=== PATIENT | female | born 1950 | race Caucasian/White ===

== ENCOUNTER 2024-06-01 16:13 | Inpatient (IN) | payer OTHER ==
[2024-06-01] MEDS ORDERED: NA CHLORIDE 0.9% 1,000 ML ONE (16:24)
[2024-06-01 16:33] LABS: Absolute Basophils 0.1 K/uL (0-0.5); Absolute Eosinophils 0.3 K/uL (0-0.5); Absolute Lymphocytes (CBC) 2.5 K/uL (0.7-4.9); Absolute Neutrophil 11.2 K/uL (1.8-8.0); Basophils % 0.4 % (0-1.3); Eosinophils % 1.8 % (0-4.4); Hematocrit 32.7 % (36.0-45.0); Hemoglobin 10.8 g/dL (12.0-15.0); Lymphocytes % 16.9 % (15.3-44.8); MCH 26.2 pg (27.0-35.0); MCHC 32.9 g/dL (32.0-36.0); MCV 79.6 fL (80-100); MPV 7.1 fL (7.6-11.3); Monocytes % 6.9 % (3.3-12.3); Platelets 427 thou/uL (152-406); RBC Red Blood Cell Count 4.12 M/uL (3.86-4.86)
[2024-06-01 16:46] LABS: PT Prothrombin Time 16.7 SECONDS (9.4-12.5); Protime INR 1.51
[2024-06-01 16:53] LABS: Albumin 2.8 g/dL (3.4-5.0); Albumin/Globulin Ratio 0.6 (1.1-1.8); Alkaline Phosphatase 72 U/L (45-117); Anion Gap 10.2 mEq/L (5.0-15.0); BUN Blood Urea Nitrogen 17 mg/dL (7-18); Bicarbonate 22 mEq/L (21-32); Bilirubin Total 0.2 mg/dL (0.2-1.0); Globulin 4.5 g/dL (2.3-3.5); Glomerular Filtration Rate 76 ml/min (=/>90); Glucose Level 172 mg/dL (74-106); Lipase 23 U/L (13-75); Magnesium 1.6 mg/dL (1.6-2.4); NT PRO-BNP 607 pg/mL (<450); Potassium 3.2 mEq/L (3.5-5.1); Protein, Total 7.3 g/dL (6.4-8.2); Sodium Level 136 mEq/L (136-145); Troponin High Sensitivity 4.1 pg/mL (<58.9)
[2024-06-01 16:56] LABS: ALT/SGPT < 14 U/L (13-56); AST/SGOT < 10 U/L (15-37); Bilirubin Direct < 0.2 mg/dL (0-0.2)
[2024-06-01] MEDS ORDERED: IPRATROPIUM BROM 0.5MG/2.5ML ONE (17:22)
[2024-06-01] MEDS ORDERED: METHYLPREDNISOLONE 125 MG INJ ONE (17:22)
[2024-06-01] MEDS ORDERED: DIGOXIN 0.25 MG/ML AMP ONE (17:22)
[2024-06-01] MEDS ORDERED: LEVALBUTEROL 1.25 MG/3 ML NEB ONE (17:22)
[2024-06-01] MEDS ORDERED: METOPROLOL TARTRATE 5 MG/5 ML INJ IV ONE (17:23)
[2024-06-01] MEDS ORDERED: MAGNESIUM SULFATE 1 gm IVPB 1 GM/100 ML BAG IV ONE (17:23)
--- NOTE | 2024-06-01 17:42 | ER ---
Nurse's Notes [facility] Name: Pavithra Case Age: 74 yrs Sex: Female : 1950 Arrival Date: 06/01/2024 Time: 16:13 Bed 2 Private MD: Diagnosis: Paroxysmal atrial fibrillation-WITH RVR;Chest pain, unspecified;Hypokalemia Presentation: 06/01 16:18 Initial Sepsis Screen: Does the patient meet any 2 criteria? HR > 90 bpm. Does the cm10 patient have a suspected source of infection? No. Patient's initial sepsis screen is negative. Risk Assessment: Do you want to hurt yourself or someone else? Patient reports no desire to harm self or others. Onset of symptoms was May 30, 2024. Care prior to arrival: Medication(s) given: Nitroglycerin, 0.4 mg SL x 1, Morphine 4mg IV initiated. 20 GA, in the right antecubital area. 16:18 Acuity: ZOEY 2 cm10 16:19 Chief complaint: EMS states: Called to patient's home due to patient having chest pain cm10 onset Saturday. Pt states that her pain is to the right side of her chest and radiates to her back. Pt describes the pain as dull. Pt received Nitro X1 and Morphine 4mg in route and states that it helped her pain some. Coronavirus screen: Client denies travel out of the [place] in the last 14 days. Ebola Screen: No symptoms or risks identified at this time. 16:19 Method Of Arrival: EMS: [facility] cm10 Historical: - Allergies: 16:22 Aspirin; mb9 - Home Meds: 16:26 buspirone 15 mg Oral tablet 1 tab [Active]; diltiazem HCl 240 mg Oral Capsule, ER 24 hr cm10 1 cap daily [Active]; oxybutynin chloride 10 mg Oral Tablet, Extended Release 24 hr 1 tab daily [Active]; venlafaxine 150 mg oral Capsule, ER 24 hr 1 cap daily [Active]; dexlansoprazole 60 mg oral capsule,delayed release,biphasic 1 cap daily [Active]; ergocalciferol (vitamin D2) 1,250 mcg (50,000 unit) oral capsule [Active]; levothyroxine 25 mcg tablet 1 tab daily [Active]; Trelegy Ellipta 100-62.5-25 mcg inhalation Blister, With Inhalation Device 1 inhalation daily [Active]; donepezil 10 mg oral Tablet,disintegrating 1 tab every day at bedtime [Active]; ropinirole 2 mg oral tablet 1 tab every day at bedtime [Active]; lisinopril 2.5 mg Oral tablet 1 tab daily [Active]; sertraline 100 mg oral tablet 1 tab daily [Active]; risedronate 150 mg oral tablet 1 tab [Active]; metformin 1,000 mg Oral tablet [Active]; repaglinide 1 mg oral tablet 1 tab 3 times per day [Active]; rosuvastatin 10 mg oral tablet 1 tab daily [Active]; Eliquis 5 mg oral tablet 1 tab 2 times per day [Active]; - PMHx: 16:22 Atrial fibrillation; mb9 16:26 Hypertensive disorder; Hypercholesterolemia; Anxiety; Depressive disorder; cm10 Hypothyroidism; Restless leg syndrome; Osteoporosis; Diabetes mellitus; COPD; Vitamin D Deficiency; Anemia; - Immunization history:: Adult Immunizations up to date. - Infectious Disease History:: Denies. - Social history:: Smoking status: Patient denies any tobacco usage or history of. Screenin:21 [facility] ED Fall Risk Assessment (Adult) History of falling in the last 3 months, mb9 including since admission No falls in past 3 months (0 pts) Confusion or Disorientation No (0 pts) Intoxicated or Sedated No (0 pts) Impaired Gait No (0 pts) Mobility Assist Device Used No (0 pt) Altered Elimination No (0 pt) Score/Fall Risk Level 0 - 2 = Low Risk Oriented to surroundings, Maintained a safe environment, Educated pt \T\ family on fall prevention, incl call for assistance when getting out of bed. Abuse screen: Denies threats or abuse. Nutritional screening: No deficits noted. Tuberculosis screening: Assessment: 16:31 General: Appears in no apparent distress. Behavior is calm, cooperative. Pain: mb9 Complains of pain in chest Pain radiates to right arm Pain currently is 1 out of 10 on a pain scale. Quality of pain is described as aching, dull, Pain began suddenly. Neuro: Peter Agitation-Sedation Scale (RASS): 0 - Alert and Calm Level of Consciousness is awake, alert, obeys commands, Oriented to person, place, time, situation, Appropriate for age. Cardiovascular: Heart tones S1 S2 present Patient's skin is warm and dry. Respiratory: Airway is patent Respiratory effort is even, unlabored, Respiratory pattern is regular, symmetrical, Breath sounds are clear bilaterally. GI: Abdomen is round non-distended. : No signs and/or symptoms were reported regarding the genitourinary system. EENT: No signs and/or symptoms were reported regarding the EENT system. Derm: Skin is pink, warm \T\ dry. Musculoskeletal: Range of motion: intact in all extremities. 17:52 Reassessment: Patient states feeling better. Patient states symptoms have improved. cm10 18:02 Reassessment: Patient and/or family updated on plan of care and expected duration. Pain mb9 level reassessed. Patient is alert, oriented x 3, equal unlabored respirations, skin warm/dry/pink. 19:00 Reassessment: Patient appears in no apparent distress at this time. No changes from cm10 previously documented assessment. Patient and/or family updated on plan of care and expected duration. Pain level reassessed. Patient is alert, oriented x 3, equal unlabored respirations, skin warm/dry/pink. 20:59 Reassessment: Patient appears in no apparent distress at this time. No changes from cm10 previously documented assessment. Patient and/or family updated on plan of care and expected duration. Pain level reassessed. Patient is alert, oriented x 3, equal unlabored respirations, skin warm/dry/pink. Vital Signs: 16:18 BP 142 / 65; Pulse 92; Resp 15; Temp 98.6(O); Pulse Ox 100% on R/A; Weight 70.31 kg cm10 (M); Height 5 ft. 4 in. ; Pain 5/10; 17:00 Pulse 160; cm10 17:22 BP 142 / 79; Pulse 125; Resp 18; Pulse Ox 100% on R/A; cm10 17:30 BP 144 / 73; Pulse 108; Resp 16; Pulse Ox 100% on R/A; cm10 17:55 Pulse 72; cm10 18:00 BP 158 / 63; Pulse 77; Resp 14; Pulse Ox 99% on R/A; cm10 18:30 BP 149 / 65; Pulse 84; Resp 16; Pulse Ox 99% on R/A; cm10 19:00 BP 145 / 60; Pulse 84; Resp 15; Pulse Ox 100% on R/A; cm10 19:30 BP 152 / 71; Pulse 87; Resp 16; Pulse Ox 99% on R/A; cm10 20:00 BP 148 / 72; Pulse 87; Resp 18; Pulse Ox 99% on R/A; cm10 20:30 BP 142 / 58; Pulse 79; Resp 14; Pulse Ox 98% on R/A; cm10 16:18 Body Mass Index 26.61 (70.31 kg, 162.56 cm) cm10 16:18 Pain Scale: Adult 10 Vitals: 16:30 Cardiac Rhythm Assessment Atrial fibrillation. cm10 17:52 Cardiac Rhythm Assessment Regular Sinus rhythm. 10 ED Course: 16:17 Patient arrived in ED. 10 16:19 Triage completed. 10 16:20 Duarte Mccullough MD is Attending Physician. [facility] 16:20 Tamika Martin RN is Primary Nurse. mb9 16:20 Initial lab(s) drawn, by nm, sent to lab. EKG done, by ED staff, reviewed by Duarte Mccullough MD. Maintain EMS IV. Dressing intact. Good blood return noted. Site clean \T\ dry. Gauge \T\ site: 20g right AC. Flushed with 10 mL NS. 16:21 Placed in gown. Bed in low position. Call light in reach. Side rails up X 1. Provided ana Education on: press call light if needing anything. Client placed on continuous cardiac and pulse oximetry monitoring. NIBP monitoring applied. satellite project site monitor on. 16:22 Basic Metabolic Panel Sent. mb9 16:22 CBC with Diff Sent. mb9 16:22 LFT's Sent. mb9 16:22 Magnesium Sent. mb9 16:22 NT PRO-BNP Sent. mb9 16:22 PT-INR Sent. mb9 16:22 Troponin HS Sent. mb9 16:22 Arm band placed on. mb9 17:04 XRAY Chest (1 view) In Process Unspecified. EDMS 17:20 Inserted saline lock: 18 gauge in left forearm, using aseptic technique. Flushed with cm10 10 mL NS. 17:40 Alfonso Li MD is Hospitalizing Provider. [facility] 17:52 EKG done, by ED staff, reviewed by Duarte Mccullough MD. 10 18:06 No provider procedures requiring assistance completed. Patient admitted, IV remains in mb9 place. Administered Medications: 16:22 Not Given (Hemodynamic Parameters; pt allergicc): aspirinchewable tablet 81 mg PO once mb9 16:31 Drug: NS 0.9% IV 1000 ml IV at 125 ml/hr continuous Route: IV; Rate: 125 ml/hr; Site: mb9 right antecubital; 17:52 Follow up: IV Status: Infusion continued upon admission 9 17:20 Drug: MethylPrednisoLONE IVP 125 mg IVP once Route: IVP; Site: left forearm; cm10 17:52 Follow up: Response: No adverse reaction 9 17:20 Drug: Magnesium Sulfate IVPB 1 grams IVPB once over 1 hrs Route: IVPB; Infused Over: 1 cm10 hrs; Site: right antecubital; 18:26 Follow up: Response: No adverse reaction; IV Status: Completed infusion; IV Intake: cm10 100ml 17:25 Drug: Metoprolol IVP 5 mg IVP once; Hold for SBP <100 or HR <60. Route: IVP; Site: left cm10 forearm; 17:51 Follow up: Response: No adverse reaction; Cardiac rhythm changed cm10 17:30 Drug: Digoxin IVP 0.5 mg IVP once Route: IVP; Site: left forearm; cm10 17:51 Follow up: Response: No adverse reaction; Cardiac rhythm changed cm10 17:51 Drug: Metoprolol PO 50 mg PO once Route: PO; mb9 18:26 Follow up: Response: No adverse reaction cm10 17:51 Drug: Famotidine IVP 20 mg IVP once; dilute with 10 mL 0.9% NaCl; give over 2 minutes 9 Route: IVP; Site: right antecubital; 18:26 Follow up: Response: No adverse reaction cm10 17:51 Drug: Potassium PO Effervescent Tablet 25 mEq PO once; dissolve in 4 ounces of water or [facility] juice Route: PO; 18:26 Follow up: Response: No adverse reaction cm10 17:53 CANCELLED (Physician Discretion): ipratropiumaerosol 0.5 mg Inhalation once cm10 17:54 CANCELLED (Physician Discretion): levalbuterol3.75 mg Inhalation once 10 19:03 Not Given (Hemodynamic Parameters): metoprolol5 mg IVP once; Hold for SBP <100 or HR al5 <60. Medication: 16:22 VIS not applicable for this client. mb9 Intake: 18:26 IV: 100ml; Total: 100ml. cm10 Outcome: 17:42 Decision to Hospitalize by Provider. mesha 21:29 Admitted to Tele accompanied by nurse, via wheelchair, room 414, cm10 21:29 Condition: stable 21:29 Instructed on the need for admit, 21:32 Patient left the ED. cm10 Signatures: Dispatcher [employer] EDDuarte Corral MD MD cha Wilkerson, Tamika David RN RN mb9 Kelly Porras RN RN cm10 Jeri Zhu RN al5 Corrections: (The following items were deleted from the chart) 17:53 17:43 Ipratropium Inhalation Aerosol 0.5 mg Inhalation cm10 cm10 17:53 17:43 Levalbuterol Inhalation 3.75 mg Inhalation cm10 cm10
--- NOTE | 2024-06-01 17:42 | EDPHYS ---
Physician Documentation [facility] Name: Pavithra Case Age: 74 yrs Sex: Female : 1950 Arrival Date: 06/01/2024 Time: 16:13 Bed 2 Private MD: ROXI Physician Duarte Mccullough HPI: 06/01 17:33 This 74 yrs old Female presents to ER via EMS with complaints of Chest Pain. [facility] 17:33 The patient or guardian reports chest pain that is located primarily in the anterior mesha chest wall, bilaterally. Onset: just prior to arrival. The pain does not radiate. Associated signs and symptoms: The patient has no apparent associated signs or symptoms. The chest pain is described as aching. Modifying factors: The symptoms are alleviated by nothing. the symptoms are aggravated by nothing. The patient has not experienced similar symptoms in the past. Historical: - Allergies: 16:22 Aspirin; mb9 - Home Meds: 16:26 buspirone 15 mg Oral tablet 1 tab [Active]; diltiazem HCl 240 mg Oral Capsule, ER 24 hr cm10 1 cap daily [Active]; oxybutynin chloride 10 mg Oral Tablet, Extended Release 24 hr 1 tab daily [Active]; venlafaxine 150 mg oral Capsule, ER 24 hr 1 cap daily [Active]; dexlansoprazole 60 mg oral capsule,delayed release,biphasic 1 cap daily [Active]; ergocalciferol (vitamin D2) 1,250 mcg (50,000 unit) oral capsule [Active]; levothyroxine 25 mcg tablet 1 tab daily [Active]; Trelegy Ellipta 100-62.5-25 mcg inhalation Blister, With Inhalation Device 1 inhalation daily [Active]; donepezil 10 mg oral Tablet,disintegrating 1 tab every day at bedtime [Active]; ropinirole 2 mg oral tablet 1 tab every day at bedtime [Active]; lisinopril 2.5 mg Oral tablet 1 tab daily [Active]; sertraline 100 mg oral tablet 1 tab daily [Active]; risedronate 150 mg oral tablet 1 tab [Active]; metformin 1,000 mg Oral tablet [Active]; repaglinide 1 mg oral tablet 1 tab 3 times per day [Active]; rosuvastatin 10 mg oral tablet 1 tab daily [Active]; Eliquis 5 mg oral tablet 1 tab 2 times per day [Active]; - PMHx: 16:22 Atrial fibrillation; mb9 16:26 Hypertensive disorder; Hypercholesterolemia; Anxiety; Depressive disorder; cm10 Hypothyroidism; Restless leg syndrome; Osteoporosis; Diabetes mellitus; COPD; Vitamin D Deficiency; Anemia; - Immunization history:: Adult Immunizations up to date. - Infectious Disease History:: Denies. - Social history:: Smoking status: Patient denies any tobacco usage or history of. ROS: 17:36 Constitutional: Negative for fever, chills, and weight loss, Eyes: Negative for injury, mesha pain, redness, and discharge, ENT: Negative for injury, pain, and discharge, Neck: Negative for injury, pain, and swelling, Respiratory: Negative for shortness of breath, cough, wheezing, and pleuritic chest pain, Abdomen/GI: Negative for abdominal pain, nausea, vomiting, diarrhea, and constipation, Back: Negative for injury and pain, : Negative for injury, bleeding, discharge, and swelling, MS/Extremity: Negative for injury and deformity, Skin: Negative for injury, rash, and discoloration, Neuro: Negative for headache, weakness, numbness, tingling, and seizure, Psych: Negative for depression, anxiety, suicide ideation, homicidal ideation, and hallucinations, Allergy/Immunology: Negative for hives, rash, and allergies, Endocrine: Negative for neck swelling, polydipsia, polyuria, polyphagia, and marked weight changes, Hematologic/Lymphatic: Negative for swollen nodes, abnormal bleeding, and unusual bruising, 17:36 Cardiovascular: Positive for chest pain, palpitations, Exam: 17:36 Constitutional: This is a well developed, well nourished patient who is awake, alert, mesha and in no acute distress. Head/Face: Normocephalic, atraumatic. Eyes: Pupils equal round and reactive to light, extra-ocular motions intact. Lids and lashes normal. Conjunctiva and sclera are non-icteric and not injected. Cornea within normal limits. Periorbital areas with no swelling, redness, or edema. ENT: Nares patent. No nasal discharge, no septal abnormalities noted. Tympanic membranes are normal and external auditory canals are clear. Oropharynx with no redness, swelling, or masses, exudates, or evidence of obstruction, uvula midline. Mucous membranes moist. Neck: Trachea midline, no thyromegaly or masses palpated, and no cervical lymphadenopathy. Supple, full range of motion without nuchal rigidity, or vertebral point tenderness. No Meningismus. Chest/axilla: Normal chest wall appearance and motion. Nontender with no deformity. No lesions are appreciated. Respiratory: Lungs have equal breath sounds bilaterally, clear to auscultation and percussion. No rales, rhonchi or wheezes noted. No increased work of breathing, no retractions or nasal flaring. Abdomen/GI: Soft, non-tender, with normal bowel sounds. No distension or tympany. No guarding or rebound. No evidence of tenderness throughout. Back: No spinal tenderness. No costovertebral tenderness. Full range of motion. Female : Normal external genitalia. Skin: Warm, dry with normal turgor. Normal color with no rashes, no lesions, and no evidence of cellulitis. MS/ Extremity: Pulses equal, no cyanosis. Neurovascular intact. Full, normal range of motion. Neuro: Awake and alert, GCS 15, oriented to person, place, time, and situation. Cranial nerves II-XII grossly intact. Motor strength 5/5 in all extremities. Sensory grossly intact. Cerebellar exam normal. Normal gait. Psych: Awake, alert, with orientation to person, place and time. Behavior, mood, and affect are within normal limits. 17:36 Cardiovascular: Rate: tachycardic, actual rate is 92 bpm, Rhythm: regular, Pulses: Pulses are 4+ in bilateral radial, brachial, femoral, popliteal, posterior tibial and and dorsalis pedis arteries.. Heart sounds: normal, Edema: is not appreciated, JVD: is not appreciated, 17:36 ECG was reviewed by the Attending Physician. 17:50 ECG was reviewed by the Attending Physician. mesha Vital Signs: 16:18 BP 142 / 65; Pulse 92; Resp 15; Temp 98.6(O); Pulse Ox 100% on R/A; Weight 70.31 kg cm10 (M); Height 5 ft. 4 in. ; Pain 5/10; 17:00 Pulse 160; cm10 17:22 BP 142 / 79; Pulse 125; Resp 18; Pulse Ox 100% on R/A; cm10 17:30 BP 144 / 73; Pulse 108; Resp 16; Pulse Ox 100% on R/A; cm10 17:55 Pulse 72; cm10 18:00 BP 158 / 63; Pulse 77; Resp 14; Pulse Ox 99% on R/A; cm10 18:30 BP 149 / 65; Pulse 84; Resp 16; Pulse Ox 99% on R/A; cm10 19:00 BP 145 / 60; Pulse 84; Resp 15; Pulse Ox 100% on R/A; cm10 19:30 BP 152 / 71; Pulse 87; Resp 16; Pulse Ox 99% on R/A; cm10 20:00 BP 148 / 72; Pulse 87; Resp 18; Pulse Ox 99% on R/A; cm10 20:30 BP 142 / 58; Pulse 79; Resp 14; Pulse Ox 98% on R/A; cm10 16:18 Body Mass Index 26.61 (70.31 kg, 162.56 cm) cm10 16:18 Pain Scale: Adult cm10 MDM: 16:20 Medical Screening Exam initiated mesha 17:48 Differential diagnosis: abnormal EKG, acute myocardial infarction, acute pericarditis, mesha anxiety, coronary artery disease chest wall pain, costochondritis, esophagitis, gastritis, peptic ulcer disease, pneumonia, pulmonary embolus, stable angina, thoracic aortic disection, unstable angina. HEART Score: History: Slightly Suspicious (0), ECG: Normal (0), Age: > or = 65 years (2). The patient was not given aspirin in the Emergency Department. Not indicated due to patient's past medical history. DAVY Risk Score: 1 - patient's age is greater or equal to 65 years, 1 - Three or more CAD risk factors, [Family Hx], [HTN], [Elevated Cholesterol], 1 - Recent [<24hrs] Severe Angina, TOTAL SCORE = 3. Data reviewed: vital signs, nurses notes, lab test result(s), EKG, radiologic studies, plain films. Consideration of Admission/Observation Patient was admitted/placed on observation. Escalation of care including admission/observation considered. I considered the following discharge prescriptions or medication management in the emergency department Medications were administered in the Emergency Department. See MAR. Independent interpretation of the following test(s) in the Emergency Department EKG: See my EKG interpretation above. Test considered but Not performed: Ultrasound NO 2 D ECHO. Care significantly affected by the following chronic conditions: Hypertension, Obesity, A FIB, ANXIETY , DEPRESSION. 06/01 16:21 Order name: Basic Metabolic Panel; Complete Time: 17:15 [facility] 06/01 16:21 Order name: CBC with Diff; Complete Time: 17:15 [facility] 06/01 16:21 Order name: LFT's; Complete Time: 17:15 [facility] 06/01 16:21 Order name: Magnesium; Complete Time: 17:15 [facility] 06/01 16:21 Order name: NT PRO-BNP; Complete Time: 17:15 [facility] 06/01 16:21 Order name: PT-INR; Complete Time: 17:15 [facility] 06/01 16:21 Order name: Troponin HS; Complete Time: 17:15 [facility] 06/01 16:21 Order name: Lipase; Complete Time: 17:15 [facility] 06/01 16:21 Order name: Urinalysis w/ reflexes [facility] 06/01 17:10 Order name: TSH [facility] 06/01 18:45 Order name: Procalcitonin [facility] 06/01 18:55 Order name: CBC with Automated Diff [facility] 06/01 18:55 Order name: Comprehensive Metabolic Panel [facility] 06/01 18:55 Order name: Creatine Phosphokinase [facility] 06/01 18:55 Order name: Lactate w/ 2H reflex if indic. [facility] 06/01 18:55 Order name: Magnesium [facility] 06/01 18:55 Order name: NT PRO-BNP [facility] 06/01 18:55 Order name: Phosphorus [facility] 06/01 18:55 Order name: Urinalysis w/ reflexes [facility] 06/01 18:55 Order name: Lipid Profile [facility] 06/01 18:55 Order name: Lipid Profile [facility] 06/01 18:55 Order name: Troponin High Sensitivity [facility] 06/01 18:55 Order name: Troponin High Sensitivity [facility] 06/01 18:55 Order name: Troponin High Sensitivity [facility] 06/01 18:55 Order name: Troponin High Sensitivity [facility] 06/01 18:56 Order name: Procalcitonin [facility] 06/01 19:02 Order name: T4 Free [facility] 06/01 16:21 Order name: XRAY Chest (1 view) [facility] 06/01 16:21 Order name: EKG; Complete Time: 16:22 [facility] 06/01 17:52 Order name: EKG; Complete Time: 17:52 cm10 06/01 18:57 Order name: Respiratory Therapy Consult [facility] 06/01 16:21 Order name: Cardiac monitoring; Complete Time: 16:22 [facility] 06/01 16:21 Order name: EKG - Nurse/Tech; Complete Time: 16:22 [facility] 06/01 16:21 Order name: IV Saline Lock; Complete Time: 16: [facility] 06/01 16:21 Order name: Labs collected and sent; Complete Time: 16:22 [facility] 06/01 16:21 Order name: O2 Per Protocol; Complete Time: 16: [facility] 06/01 16:21 Order name: O2 Sat Monitoring; Complete Time: 16: [facility] 06/01 17:52 Order name: EKG - Nurse/Tech; Complete Time: 17:52 cm10 EC:36 Rate is 95 beats/min. Rhythm is regular. QRS Randolph is Normal. LA interval is normal. QRS mesha interval is normal. QT interval is normal. No Q waves. T waves are Normal. No ST changes noted. Clinical impression: NSR w/ Non-specific ST/T Changes and No evidence of ischemia. Interpreted by me. Reviewed by me. 17:50 Rate is 73 beats/min. QRS [place] is Normal. LA interval is normal. QRS interval is mesha normal. QT interval is normal. No Q waves. T waves are Normal. No ST changes noted. Clinical impression: Normal ECG and No evidence of ischemia. Interpreted by me. Reviewed by me. Administered Medications: 16:22 Not Given (Hemodynamic Parameters; pt allergicc): aspirinchewable tablet 81 mg PO once mb9 16:31 Drug: NS 0.9% IV 1000 ml IV at 125 ml/hr continuous Route: IV; Rate: 125 ml/hr; Site: mb9 right antecubital; 17:52 Follow up: IV Status: Infusion continued upon admission mb9 17:20 Drug: MethylPrednisoLONE IVP 125 mg IVP once Route: IVP; Site: left forearm; cm10 17:52 Follow up: Response: No adverse reaction mb9 17:20 Drug: Magnesium Sulfate IVPB 1 grams IVPB once over 1 hrs Route: IVPB; Infused Over: 1 cm10 hrs; Site: right antecubital; 18:26 Follow up: Response: No adverse reaction; IV Status: Completed infusion; IV Intake: cm10 100ml 17:25 Drug: Metoprolol IVP 5 mg IVP once; Hold for SBP <100 or HR <60. Route: IVP; Site: left cm10 forearm; 17:51 Follow up: Response: No adverse reaction; Cardiac rhythm changed cm10 17:30 Drug: Digoxin IVP 0.5 mg IVP once Route: IVP; Site: left forearm; cm10 17:51 Follow up: Response: No adverse reaction; Cardiac rhythm changed cm10 17:51 Drug: Metoprolol PO 50 mg PO once Route: PO; mb9 18:26 Follow up: Response: No adverse reaction cm10 17:51 Drug: Famotidine IVP 20 mg IVP once; dilute with 10 mL 0.9% NaCl; give over 2 minutes mb9 Route: IVP; Site: right antecubital; 18:26 Follow up: Response: No adverse reaction cm10 17:51 Drug: Potassium PO Effervescent Tablet 25 mEq PO once; dissolve in 4 ounces of water or mb9 juice Route: PO; 18:26 Follow up: Response: No adverse reaction cm10 17:53 CANCELLED (Physician Discretion): ipratropiumaerosol 0.5 mg Inhalation once cm10 17:54 CANCELLED (Physician Discretion): levalbuterol3.75 mg Inhalation once cm10 19:03 Not Given (Hemodynamic Parameters): metoprolol5 mg IVP once; Hold for SBP <100 or HR al5 <60. Disposition Summary: 06/01/24 17:42 Hospitalization Ordered Notes: Hospitalization Status: Observation mesha Provider: Alfonso Li cha Location: Telemetry/MedSurg (observation) mesha Condition: Fair mesha Problem: new mesha Symptoms: have improved mesha Bed/Room Type: Standard mesha Room Assignment: 414(06/01/24 19:44) rv1 Diagnosis - Paroxysmal atrial fibrillation - WITH RVR mesha - Chest pain, unspecified mesha - Hypokalemia mesha Forms: - Medication Reconciliation Form mesha - SBAR form mesha - Leadership Thank You Letter mesha Signatures: Dispatcher [employer] Duarte Goetz MD MD cha Wilkerson, Tamika David RN RN mb9 Ibis Canseco rv1 Kelly Porras RN RN cm10 Jeri Zhu RN al5 Corrections: (The following items were deleted from the chart) 17:53 17:15 Ipratropium Inhalation Aerosol 0.5 mg Inhalation once ordered. [place] [id number] 17:53 17:43 Ipratropium Inhalation Aerosol 0.5 mg Inhalation once given. [facility] cm10 17:53 17:53 Ipratropium Inhalation Aerosol 0.5 mg Inhalation once ordered. [address] 17:54 17:15 Levalbuterol Inhalation 3.75 mg Inhalation once ordered. [facility] 17:54 17:44 Levalbuterol Inhalation 3.75 mg Inhalation once given. [facility] cm10 17:54 17:53 Levalbuterol Inhalation 3.75 mg Inhalation once ordered. [place] [id number] 17:57 17:15 BLOOD CULTURE*+BA.LAB.BRZ ordered. EDMS EDMS 17:57 17:15 LACTATE+C.LAB.BRZ ordered. EDMS EDMS 19:44 17:42 mesha rv1
[2024-06-01] MEDS ORDERED: POTASSIUM 25 MEQ EFFERV TAB ONE (17:46)
[2024-06-01] MEDS ORDERED: FAMOTIDINE 20 MG/2 ML VIAL IV ONE (17:46)
[2024-06-01] MEDS ORDERED: METOPROLOL XL 50 MG TAB PO ONE (17:46)
--- NOTE | 2024-06-01 18:11 | RAD REPORT ---
EXAMINATION: ONE VIEW CHEST XR CLINICAL INDICATION: Female, 74 years old.,CHEST PAIN TECHNIQUE: Frontal chest projection is submitted. Examination is limited by patient positioning and t echnique. COMPARISON: No prior exam. FINDINGS: The lungs are well inflated. Bibasilar interstitial and mild patchy alveolar opacities more prominent on the left. Blunting of the left costophrenic angle, could relate to atelectasis, trace effusion, or pleural thickening. No pneumothorax or sizable effusion. The heart is normal in size. Mediastinal contours are unremarkable. IMPRESSION: Mild bibasilar opacities as above worse on the left, may relate to fibrotic changes or mild pneumonit is.
[2024-06-01] MEDS ORDERED: ALBUTEROL 2.5 MG/3 ML NEB SOL NEB PRN (18:50)
[2024-06-01] MEDS: DILTIAZEM HCL 60 MG TAB PO ONE (18:55)
[2024-06-01 19:00] LABS: Thyroid Stimulating Hormone 4.91 uIU/mL (0.358-3.740)
[2024-06-01] MEDS: IPRATROPIUM BROM 0.5MG/2.5ML NEB SCH (19:00)
[2024-06-01 19:13] LABS: Specific Gravity > 1.030 (1.005-1.030); Sqamous Epithelial <5 /HPF (None Seen); Urine Bacteria None Seen /HPF (<20); Urine Bilirubin NEGATIVE (Negative); Urine Blood Negative (Negative); Urine Clarity Clear (Clear); Urine Color Light-Yellow (Yellow); Urine Culture Reflex Order NOT NEEDED; Urine Glucose NEGATIVE (Negative); Urine Ketones NEGATIVE (Negative); Urine Microscopic Reflex YN ORDER UMIC; Urine Mucus Slight /HPF (None Seen); Urine Nitrite NEGATIVE (Negative); Urine Protein 1+ (Negative); Urine RBC <5 /HPF (None Seen); Urine Urobilinogen Normal (Normal); Urine WBC <5 /HPF (<5)
--- NOTE | 2024-06-01 19:21 | P.HP ---
Certification for Inpatient With expected LOS: <2 Midnights <Catia Soni Q - Last Filed: 06/01/24 18:56> Patient History Date of Service: 06/01/24 Reason for admission: chest pain, atrial fibrillation History of Present Illness: 74 year old woman with a past medical history significant for A fib with RVR, depression, OAB, vitamin D deficiency, hypothyroidism, COPD, dementia, HTN, DM non insulin dependent, HDL, and restless leg syndrome presented to the emergency room complaining of chest pain that began earlier today. The patient states the she finished a 5 day course of antibiotic on 05/27/24 for pneumonia. Also, the patient states she recently began taking Eliquis 5 days ago for atrial fibrillation. The patient states that nothing alleviates or worsens her chest pain. She denies cough, and fever. - Past Medical/Surgical History Diabetic: Yes -: A fib -: depression -: OAB -: GERD -: vitamin D deficiency -: hypothyroidism -: COPD -: dementia -: HTN -: HDL -: restless legs syndrome Past Surgical History: Reviewed- Non-Contributory - Family History Family History: Reviewed- Non-Contributory - Social History Smoking Status: Unknown if ever smoked Alcohol use: No <Catia Soni Q - Last Filed: 06/01/24 18:56> Date of Service: 06/03/24 <Alfonso Li - Last Filed: 06/03/24 08:40> Review of Systems Cardiovascular: Chest Pain, Palpitations <Catia Soni Q - Last Filed: 06/01/24 18:56> Physical Examination - Vital Signs Temperature: 98.6 F Blood Pressure: 158/63 Pulse: 89 Respirations: 18 Pulse Ox (%): 99 - Physical Exam General: Alert, Oriented x3 HEENT: Atraumatic, Normocephalic Neck: JVD not distended Respiratory: Normal air movement Cardiovascular: No edema, Regular rate/rhythm Gastrointestinal: Normal bowel sounds, Non-distended, No tenderness Musculoskeletal: No swelling, No erythema, No tenderness, No warmth Neurological: Normal strength at 5/5 x4 extr, Sensation intact - Studies Laboratory Data (last 24 hrs) 06/01/24 06/01/24 06/01/24 16:25 16:25 16:25 WBC 15.10 H Hgb 10.8 L Hct 32.7 L Plt Count 427 H PT 16.7 H INR 1.51 Sodium 136 Potassium 3.2 L BUN 17 Creatinine 0.81 Glucose 172 H Magnesium 1.6 Total Bilirubin 0.2 AST < 10 L ALT < 14 Alkaline Phosphatase 72 Lipase 23 <David Soniy Q - Last Filed: 06/01/24 18:56> Assessment and Plan - Problems (Diagnosis) (1) Chest pain Current Visit: Yes Status: Acute (2) Atrial fibrillation Current Visit: Yes Status: Acute Qualifiers: Atrial fibrillation type: paroxysmal Qualified Code(s): I48.0 - Paroxysmal atrial fibrillation - Plan Chest pain: Admit to floor Repeat BNP and other lab work DuoNebs as needed Pro-Manjinder ordered Atrial fibrillation Telemetry ordered Respiratory therapy ordered - Advance Directives Does patient have a Living Will: No Does patient have a Durable POA for Healthcare: No <Catia Soni Q - Last Filed: 06/01/24 18:56> Date of Service: 06/01/24 Patient was seen and examined. Events of the last 24 hours have been noted. Spoke with with RAD regarding patient's clinical picture after evaluating and examining the patient independently. I performed a substantial part of the MDM during this patient's care today. I personally made or approved the documented management plan and acknowledge its risk of complications. I agree with the findings and documentation provided in the RAD's notes. Patient has chest pain. Patient was at an outside hospital and diagnosed with new onset A-fib. No extensive workup and no cardiology follow-up at this time. Will get cardiology consultation and will get echocardiogram and stress test while in the hospital. <Alfonso Li - Last Filed: 06/03/24 08:40>
[2024-06-01] MEDS ORDERED: NITROGLYCERIN 0.4 MG/TAB SL PRN (22:08)
[2024-06-01] MEDS: DILTIAZEM HCL 60 MG TAB ONE (22:08)
[2024-06-01 22:48] VITALS: O2SAT 98; BMI 26.2
[2024-06-02] MEDS: HEPARIN 5000 UNIT/ML 1 ML VIAL SQ SCH (00:37)
[2024-06-02 06:14] LABS: Absolute Lymphocytes (CBC) 1.2 K/uL (0.7-4.9); Absolute Monocytes 0.7 K/uL (0.1-1.3); Absolute Neutrophil 10.6 K/uL (1.8-8.0); Basophils % 0.1 % (0-1.3); Hemoglobin 10.2 g/dL (12.0-15.0); Lymphocytes % 9.7 % (15.3-44.8); MCH 25.9 pg (27.0-35.0); MCHC 32.8 g/dL (32.0-36.0); MCV 78.9 fL (80-100); MPV 6.7 fL (7.6-11.3); Monocytes % 5.4 % (3.3-12.3); Neutrophils % 84.8 % (41.7-73.7); Platelets 468 thou/uL (152-406); RBC Red Blood Cell Count 3.93 M/uL (3.86-4.86)
[2024-06-02 06:32] LABS: Troponin High Sensitivity 3.9 pg/mL (<58.9)
[2024-06-02 06:42] LABS: Albumin 2.6 g/dL (3.4-5.0); Albumin/Globulin Ratio 0.6 (1.1-1.8); Alkaline Phosphatase 62 U/L (45-117); Anion Gap 8.3 mEq/L (5.0-15.0); BUN Blood Urea Nitrogen 11 mg/dL (7-18); Bicarbonate 25 mEq/L (21-32); Creatine Phosphokinase 26 U/L (26-192); Globulin 4.6 g/dL (2.3-3.5); Glomerular Filtration Rate 91 ml/min (=/>90); Glucose Level 199 mg/dL (74-106); Magnesium 2.2 mg/dL (1.6-2.4); NT PRO-BNP 945 pg/mL (<450); Phosphorus 2.2 mg/dL (2.5-4.9); Potassium 4.3 mEq/L (3.5-5.1); Protein, Total 7.2 g/dL (6.4-8.2); Sodium Level 137 mEq/L (136-145)
[2024-06-02 06:50] LABS: ALT/SGPT < 14 U/L (13-56); AST/SGOT < 10 U/L (15-37); Bilirubin Total < 0.2 mg/dL (0.2-1.0)
--- NOTE | 2024-06-02 08:51 | EKG ---
Test Date: 2024-06-01 Test Time: 17:46:26 [employer] Executive Director: MICHAEL MEASUREMENT RESULTS: Intervals: Rate: 73 SC: 178 QRSD: 80 QT: 366 QTc: 403 [place]: P: 58 SC: 178 QRS: 1 T: 42 INTERPRETIVE STATEMENTS: Normal sinus rhythm Normal ECG Compared to ECG 06/01/2024 16:18:34 Atrial premature complex(es) no longer present Electronically Signed On 06-02-24 08:49:56 ADVERTISEMENT DISTRIBUTOR by Darryl Pelayo
--- NOTE | 2024-06-02 08:52 | EKG ---
Test Date: 2024-06-01 Test Time: 16:18:34 Neuro Intensivist Physician: MB MEASUREMENT RESULTS: Intervals: Rate: 95 ID: [id number] QRSD: 74 QT: 352 QTc: 442 [place]: P: 71 ID: [id number] QRS: 8 T: 56 INTERPRETIVE STATEMENTS: Sinus rhythm with premature atrial complexes Otherwise normal ECG No previous ECG available for comparison Electronically Signed On 06-02-24 08:50:49 AQUARIUM SPECIALIST by Darryl Pelayo
[2024-06-02] MEDS ORDERED: DRISDOL (VITAMIN D=ERGOCALCIFEROL) 50000 UNIT CAP PO SCH (11:00)
[2024-06-02] MEDS: ACETAMINOPHEN 325 MG TABLET PO PRN (11:40)
[2024-06-02] MEDS: REPAGLINIDE 0.5 MG PO SCH (12:00)
[2024-06-02] MEDS ORDERED: REPAGLINIDE 0.5 MG TABLET PO SCH (12:00)
[2024-06-02] MEDS: BUSPIRONE HCL 15 MG TABLET PO SCH (15:14)
[2024-06-02] MEDS: METFORMIN HCL 500 MG TAB PO SCH (16:04)
[2024-06-02] MEDS ORDERED: METFORMIN HCL 1000 MG PO SCH (17:00)
[2024-06-02] MEDS: METOPROLOL TAR 25 MG TAB PO SCH (20:49)
[2024-06-02] MEDS: APIXABAN 5 MG TABLET PO SCH (20:49)
[2024-06-02] MEDS: ROPINIROLE HCL 1 MG TAB PO SCH (20:50)
[2024-06-02] MEDS: DONEPEZIL HCL 5 MG TAB PO SCH (20:50)
[2024-06-02] MEDS: ROSUVASTATIN 10 MG TAB PO SCH (20:51)
[2024-06-02] MEDS ORDERED: HOME MED 1 EA UNK (Donepezil Hcl [Aricept] 10 MG Tablet) PO SCH (21:00)
[2024-06-03] MEDS: LEVOTHYROXINE SOD 0.05 MG TABLET PO SCH (05:11)
--- NOTE | 2024-06-03 08:43 | P.PN ---
Date of Service: 06/02/24 Subjective Patient still with chest pain. No new complaints. Physical Examination - Vital Signs Reviewed - Physical Exam General: Alert, Oriented x3 Respiratory: Normal air movement Cardiovascular: No edema, Regular rate/rhythm Gastrointestinal: Normal bowel sounds, Non-distended, No tenderness Musculoskeletal: No swelling, No erythema, No tenderness, No warmth Neurological: No focal deficits Assessment and Plan - Problems (Diagnosis) (1) Chest pain Current Visit: Yes Status: Acute (2) Atrial fibrillation Current Visit: Yes Status: Acute Atrial fibrillation type: paroxysmal Qualified Code(s): I48.0 - Paroxysmal atr ial fibrillation - Plan -High-sensitivity troponin -Cardiology consultation -Echocardiogram and stress test per cardiology recommendation -Repeat EKG -Lipid profile -Business Specialist regarding modifying risk for cardiac disease - Advance Directives Does patient have a Living Will: No Does patient have a Durable POA for Healthcare: No
--- NOTE | 2024-06-03 08:44 | P.DS ---
Discharge Date: 06/03/24 Disposition: ROUTINE DISCHARGE Discharge Condition: GOOD Reason for Admission: chest pain, atrial fibrillation Brief History of Present Illness: Patient is a 74 year old woman with a past medical history significant for A fib with RVR, depression, OAB, vitamin D deficiency, hypothyroidism, COPD, dementia, HTN, DM non insulin dependent, HDL, and restless leg syndrome presented to the emergency room complaining of chest pain that began earlier today. The patient states the she finished a 5 day course of antibiotic on 05/27/24 for pneumonia. Also, the patient states she recently began taking Eliquis 5 days ago for atrial fibrillation. The patient states that nothing alleviates or worsens her chest pain. She denies cough, and fever. Hospital Course: Patient has done well during hospital stay. Patient's clinical symptoms have improved. Patient will continue with medical therapy as an outpatient. Echocardiogram and stress test have been reviewed. Patient will follow-up with nitroglycerin distributor and PCP as an outpatient in 1 to 2 weeks. Vital Signs/Physical Exam: Temp Pulse Resp BP Pulse Ox 98 F 74 18 138/63 97 06/03/24 04:00 06/03/24 04:00 06/03/24 04:00 06/03/24 04:00 06/03/24 04:00 General: Alert, In no apparent distress, Oriented x3 Laboratory Data at Discharge: WBC 12.50 thou/uL (4.3-10.9) H 06/02/24 05:59 Hgb 10.2 g/dL (12.0-15.0) L 06/02/24 05:59 Hct 31.0 % (36.0-45.0) L 06/02/24 05:59 Plt Count 468 thou/uL (152-406) H 06/02/24 05:59 PT 16.7 SECONDS (9.4-12.5) H 06/01/24 16:25 INR 1.51 06/01/24 16:25 Sodium 137 mEq/L (136-145) 06/02/24 05:59 Potassium 4.3 mEq/L (3.5-5.1) D 06/02/24 05:59 BUN 11 mg/dL (7-18) 06/02/24 05:59 Creatinine 0.67 mg/dL (0.55-1.02) 06/02/24 05:59 Glucose 199 mg/dL (74-106) H 06/02/24 05:59 Phosphorus 2.2 mg/dL (2.5-4.9) L 06/02/24 05:59 Magnesium 2.2 mg/dL (1.6-2.4) 06/02/24 05:59 Total Bilirubin < 0.2 mg/dL (0.2-1.0) L 06/02/24 05:59 AST < 10 U/L (15-37) L 06/02/24 05:59 ALT < 14 U/L (13-56) 06/02/24 05:59 Alkaline Phosphatase 62 U/L (45-117) 06/02/24 05:59 Triglycerides 138 mg/dL (<150) 06/02/24 05:59 Cholesterol 102 mg/dL (<200) 06/02/24 05:59 HDL Cholesterol 43 mg/dL (40-60) 06/02/24 05:59 Cholesterol/HDL Ratio 2.37 06/02/24 05:59 Lipase 23 U/L (13-75) 06/01/24 16:25 Home Medications: Apixaban [Eliquis] 1 tab PO BID 06/01/24 Buspirone HCl 15 mg PO TID 06/01/24 Dexlansoprazole [Dexlansoprazole Dr] 60 mg PO DAILY 06/01/24 Donepezil HCl [Aricept] 10 mg PO BEDTIME 06/01/24 Ferrous Sulfate 325 mg PO DAILY 06/01/24 Fluticasone/Umeclidin/Vilanter [Trelegy Ellipta 100-62.5-25] 1 each IH DAILY 06/01/24 Levothyroxine [Synthroid] 50 mcg PO [id number] 06/01/24 Lisinopril [Zestril] 2.5 mg PO DAILY 06/01/24 Metformin HCl [Metformin ER Osmotic] 1,000 mg PO BIDWM 06/01/24 Metoprolol Tartrate [Lopressor] 25 mg PO BID 06/01/24 Oxybutynin Chloride [Oxybutynin Chloride ER] 10 mg PO DAILY 06/01/24 Repaglinide [Prandin] 1 mg PO TIDWM 06/01/24 Risedronate Sodium 150 mg PO Q30D 06/01/24 Ropinirole HCl 2 mg PO BEDTIME 06/01/24 Rosuvastatin [Crestor] 10 mg PO BEDTIME 06/01/24 Sertraline [Zoloft] 100 mg PO DAILY 06/01/24 Venlafaxine HCl [Effexor XR] 150 mg PO DAILY 06/01/24 Physician Discharge Instructions: -DC IV and DC home -Follow-up with PCP in 1 to 2 weeks -Follow-up with Cardiology in 1 to 2 weeks -Please call Dr. Li at [phone] if any questions regarding hospital stay -Please call nursing station at [phone] if any nursing or medication questions -Return to the emergency room if symptoms worsen Diet: AHA Activity: Fall precautions Followup: NONE,NONE [Primary Care Provider] - Time spent managing pt's care (in minutes): 35
[2024-06-03] MEDS: HOME MED 1 EA UNK (Fluticasone/Umeclidin/Vilanter [Trelegy Ellipta 100-62.5-25] Blst.W.Dev IH SCH (09:00)
[2024-06-03] MEDS ORDERED: HOME MED 1 EA UNK (Lisinopril [Zestril] 2.5 MG Tablet) PO SCH (09:00)
[2024-06-03] MEDS ORDERED: DEXLANSOPRAZOLE 60 MG PO SCH (09:00)
[2024-06-03] MEDS: HYDRALAZINE HCL 20 MG/ML VIAL IV ONE (09:51)
[2024-06-03] MEDS: lisinopriL 5 MG TAB PO SCH (09:52)
[2024-06-03] MEDS: oxyBUTYnin chloride 5 MG TAB PO SCH (09:52)
[2024-06-03] MEDS: PANTOPRAZOLE 40MG TABLET PO SCH (09:52)
[2024-06-03] MEDS: FERROUS SULFATE 325 MG TAB PO SCH (09:52)
[2024-06-03] MEDS: SERTRALINE HCL 100 MG TAB PO SCH (09:53)
[2024-06-03 09:54] VITALS: BP 186/76
[2024-06-03] MEDS ORDERED: REGADENOSON 0.4 MG/5 ML SYR IV ONE (10:20)
--- NOTE | 2024-06-03 11:08 | RAD REPORT ---
EXAM :Rest Stress Cardiac Imaging CLINICAL HISTORY: Chest pain TECHNIQUE: Rest images: 9.6 mCi technetium 99m sestamibi administered intravenously. Stress images: 31.4 mCi of technetium 99m sestamibi administered intravenously. Cardiac SPECT images obtained COMPARISON: None. FINDINGS: The entire left ventricular myocardium demonstrates homogeneous radiotracer uptake on stress images The entire left ventricular myocardium demonstrates homogeneous radiotracer uptake on rest images Left ventricular ejection fraction equals 62% IMPRESSION: No evidence of a myocardial perfusion defect
[2024-06-03 11:28] VITALS: TEMP 98.1
--- NOTE | 2024-06-03 11:54 | ECHO ---
HEIGHT: 5 ft 0 in WEIGHT: 134 lb 0 oz DATE OF STUDY: 06/03/[address]: Alfonso Li MD 2-DIMENSIONAL: YES M.MODE: YES DOPPLER: YES COLOR FLOW: YES TDS: PORTABLE: YES DEFINITY: BUBBLE STUDY: DIAGNOSIS: CONGESTIVE HEART FAILURE CARDIAC HISTORY: CATHERIZATION: NO SURGERY: NO PROSTHETIC VALVE: NO PACEMAKER: NO MEASUREMENTS (cm) DIASTOLIC (NORMALS) SYSTOLIC (NORMALS) IVSd 1.1 (0.6-1.2) LA Diam 2.4 (1.9-4.0) LVEF 50-55% LVIDd 3.9 (3.5-5.7) LVIDs 3.1 (2.0-3.5) %FS 23% LVPWd 1.1 (0.6-1.2) Ao Diam 2.7 (2.0-3.7) 2 DIMENSIONAL ASSESSMENT: RIGHT ATRIUM: NORMAL LEFT ATRIUM: NORMAL RIGHT VENTRICLE: NORMAL LEFT VENTRICLE: NORMAL TRICUSPID VALVE: TRACE TRICUSPID REGURGITATION MITRAL VALVE: NORMAL PULMONIC VALVE: NORMAL AORTIC VALVE: NORMAL PERICARDIAL EFFUSION: NONE AORTIC ROOT: NORMAL LEFT VENTRICULAR WALL MOTION: NORMAL DOPPLER/COLOR FLOW: GRADE I DIASTOLIC DYSFUNCTION COMMENTS: 1. NORMAL LEFT VENTRICULAR SYSTOLIC FUNCTION, EJECTION FRACTION 50-55%, NORMAL WALL MOTION 2. GRADE I DIASTOLIC DYSFUNCTION 3. NORMAL FILLING PRESSURE TECHNOLOGIST: JAKE ABEL
--- NOTE | 2024-06-03 12:03 | TREADPHA ---
DX: CHEST DISCOMFORT Date of Study: 06/03/2024 Ht: 5' 0 " Wt: 134 lb 0 oz Consulting Physician: BLAKE MEDICATIONS: TYLENOL, PROVENTIL, ELIQUIS, BUSPIRONE HCl, ARICEPT, FEOSOL, ATROVENT, SYNTHROID, PRINIVIL, GLUCOPHAGE, CRESTOR, LOPRESSOR, NITROSTAT, DITROPAN, PROTONIX, REQUIP, ZOLOFT HISTORY: 74 YEAR OLD FEMALE WITH COMPLAINTS OF CHEST PAIN AND DISCOMFORT. HISTORY OF DYSLIPIDEMIA, DIABETES TYPE 2, HYPOTHYROID, CHRONIC OBSTRUCETIVE PULMONARY DISEASE PHYSICIAL EXAMINATION: RESTING B.P.: 182/71 RESTING H.R.: 74 RESTING EKG: NORMAL SINUS RHYHTM PROTOCOL: PHARMACOLOGIC EXERCISE TIME: 3:30 B.P. AT [facility] STRESS: 189/66 IMPRESSION: PATIENT REPORTED HEADACHE PRIOR TO STARTING PROCEDURE. LEXISCAN INJECTED. CARDIOLITE INJECTED - SEE NUCLEAR MEDICINE REPORT. AT [facility] BLOOD PRESSURE PATIENT REPORTS HEADACHE WORSENED. COFFEE PROVIDED IN RECOVERY. COMPLAINTS OF PAIN WITH BLOOD PRESSURE CUFF. NO CHEST PAIN. NO ARRHYTHMIAS. NO VENTRICULAR TACHYCARDIA. NO SUPRAVENTRICULAR TACHYCARDIA.
[2024-06-20] MEDS ORDERED: RISEDRONATE SODIUM 150 MG PO SCH (06:30)
== END 2024-06-03 13:35 | disposition home or self-care (01) | DRG 310 ==
LOC: ER 16:13 → ERHOLD 18:50 → 4TH 21:04
PROVIDERS: ADMIT Hospitalist; ATTEND Hospitalist
DX: I48.0 Paroxysmal atrial fibrillation (principal); I10 Essential (primary) hypertension; E03.9 Hypothyroidism, unspecified; E11.9 Type 2 diabetes mellitus without complications; F41.9 Anxiety disorder, unspecified; F32.A Depression, unspecified; G25.81 Restless legs syndrome; E66.9 Obesity, unspecified; E78.00 Pure hypercholesterolemia, unspecified; E87.6 Hypokalemia; J44.9 Chronic obstructive pulmonary disease, unspecified; Z68.26 Body mass index [BMI] 26.0-26.9, adult; Z79.84 Long term (current) use of oral hypoglycemic drugs; Z88.6 Allergy status to analgesic agent; Z79.01 Long term (current) use of anticoagulants; Z79.899 Other long term (current) drug therapy
CPT/HCPCS: 36415; 71045; 78452; 80048; 80053; 80061; 80076; 81001; 82550; 83605; 83690; 83735; 83880; 84100; 84145; 84439; 84443; 84484; 85025; 85610; 93005; 93017; 93306; 94640; 99285; A9500; J0360; J1160; J1644; J2785; J2919; J3475; J7030; J7614; J7644